=== PATIENT | female | born 1955 | race Caucasian/White ===

== ENCOUNTER 2017-11-06 09:24 | Outpatient (CLI) | payer OTHER ==
--- NOTE | 2017-11-06 11:56 | CT ---
CT ABDOMEN WITH CONTRAST CT PELVIS WITH CONTRAST: DATE: 11/06/17. HISTORY: A 62-year-old female with K74.3, biliary cirrhosis; R11.2, nausea and emesis; and R10.9, abdominal pa in. COMPARISON: None. TECHNIQUE: IV injection of iodinated contrast media: administered. Oral contrast media: administered. FINDINGS: Lung bases are grossly clear. There is diffuse thickening of the left adrenal gland, nonspecific. N ormal right adrenal gland. No portal vein thrombosis. Cholecystectomy clips. No cystic or solid he patic mass identified. The right adrenal, abdominal aorta, left kidney, pancreas, and spleen demonst rate no major pathology. Multiple parenchymal cortical defects throughout the right kidney, especial ly in the mid and lower poles, representing scarring from prior insults (prior infarctions or prior i nfections). Small approximately 2-3 mm right renal lower pole calculus (best visualized on coronal i mage 62 of 94, series 300). No small bowel dilation. Normal appendix. Normal urinary bladder. Mul tiple diverticula in the sigmoid colon without acute diverticulitis. No free fluid or free air withi n the abdominal cavity or pelvic cavity. Diffusely mildly low hepatic attenuation suggestive of a fa tty liver. IMPRESSION: 1. Probable hepatic steatosis. 2. No evidence of hepatic neoplasm. 3. Extensive scarring of the right renal cortex due to prior insults. 4. Mild nephrolithiasis consisting of a single right tiny renal calculus. 5. Nonspecific thickening of the left adrenal gland. 6. No acute findings. ROSOI Camara POS: FABIOLA
== END 2017-11-06 09:25 | disposition home or self-care (01) ==
LOC: BURCT 09:24
PROVIDERS: ATTEND Internal Medicine Gastroenterology
DX: K74.3 Primary biliary cirrhosis (principal); R16.0 Hepatomegaly, not elsewhere classified; R10.9 Unspecified abdominal pain; R11.2 Nausea with vomiting, unspecified; N20.0 Calculus of kidney; N28.89 Other specified disorders of kidney and ureter; E27.8 Other specified disorders of adrenal gland
CPT/HCPCS: 74177; 82565

== ENCOUNTER 2020-01-16 08:52 | Emergency (ER) | payer OTHER ==
[2020-01-16] MEDS ORDERED: Ketorolac Tromethamine 30 MG/ML VIAL ONE (09:28)
[2020-01-16 09:32] LABS: #Basophils 0.1 thou/uL (0.0-0.2); #Eosinphils 0.1 thou/uL (0.0-0.7); #Lymphocytes 2.5 thou/uL (1.20-3.40); #Monocytes 1.2 thou/uL (0.11-0.59); #Neutrophils 14.1 thou/uL (1.40-6.50); %Basophils 0.7 % (0.0-1.0); %Eosinophils 0.3 % (0.0-10.0); %Lymphocytes 13.9 % (21.0-51.0); %Monocytes 6.7 % (0.0-10.0); %Neutrophils 78.5 % (42.0-75.0); Hemoglobin 9.8 g/dL (12.0-16.0); Mean Corpuscular Hemoglobin 29.4 pg (27.0-31.0); Mean Corpuscular Volume 89.3 fL (78.0-98.0); Mean Platelet Volume 6.4 fL (7.4-10.4); Platelet Count 346 thou/uL (130-400); RBC Distribution Width 13.3 % (11.5-14.5); Red Blood Cell (RBC) Count 3.34 mill/uL (4.20-5.40)
[2020-01-16 09:49] LABS: ALT (SGPT) 11 U/L (8-55); AST (SGOT) 14 U/L (5-34); Albumin 3.6 g/dL (3.4-4.8); Alkaline Phosphatase 210 U/L (40-110); Anion Gap 16 mmol/L (10-20); BUN (Urea Nitrogen) 15 mg/dL (9.8-20.1); Bilirubin, Total Less than 0.2 mg/dL (0.2-1.2); Calc. Creatinine Clearance 0 mL/min (70-130); Calcium 8.6 mg/dL (7.8-10.44); Carbon Dioxide 22 mmol/L (23-31); Chloride 103 mmol/L (98-107); Estimated GFR-MDRD 54; Globulin 2.8 g/dL (2.4-3.5); Glucose 227 mg/dL (80-115); Potassium 4.4 mmol/L (3.5-5.1); Protein, Total 6.4 g/dL (6.0-8.3); Sodium 137 mmol/L (136-145)
[2020-01-16] MEDS ORDERED: methylPREDNISolone Sod Succ/PF 125 MG/2 ML VIAL ONE (10:42)
--- NOTE | 2020-01-16 16:32 | RAD ---
RIGHT HIP THREE VIEWS: Date: 01-16-2020 FINDINGS: No fracture was seen. The joint space is minimally narrowed but there are no substantial arthritic ch anges. The articular surfaces are smooth. IMPRESSION: No acute findings. POS: HOME
--- NOTE | 2020-01-16 16:35 | RAD ---
LEFT HIP THREE VIEWS: Date: 01-16-2020 Comparison: Right hip FINDINGS: No fracture or area of bony destruction was seen. Minimal narrowing of the joint space is symmetrical which reflects the opposite side. There are no substantial degenerative changes. IMPRESSION: No acute findings. POS: HOME
== END 2020-01-16 12:15 | disposition home or self-care (01) ==
LOC: BURERS 08:52
DX: G89.4 Chronic pain syndrome (principal); D64.9 Anemia, unspecified; E11.9 Type 2 diabetes mellitus without complications; I10 Essential (primary) hypertension; F90.9 Attention-deficit hyperactivity disorder, unspecified type; F17.210 Nicotine dependence, cigarettes, uncomplicated; Z79.84 Long term (current) use of oral hypoglycemic drugs; Z79.899 Other long term (current) drug therapy
CPT/HCPCS: 80053; 83880; 84484; 85025; 93005; 94760; 96374; 96375; J1885; J2930